=== PATIENT | female | born 1985 | race Caucasian/White ===

== ENCOUNTER 2020-10-10 15:14 | Emergency (ER) | payer OTHER ==
[~2020-10-10 15:14] MED LIST: CERTAGEN1 EACH PO; PRILOSEC20 MG PO; VITAMIN D250000 UNIT PO
== END 2020-10-10 17:30 | disposition left against medical advice (07) ==
LOC: FER 15:14
DX: R22.2 Localized swelling, mass and lump, trunk (principal); Z53.8 Procedure and treatment not carried out for other reasons